=== PATIENT | male | born 1985 | race Caucasian/White ===

== ENCOUNTER 2024-10-04 06:18 | Emergency (ER) | payer OTHER, SELFPAY ==
[2024-10-04 06:23] VITALS: BP 121/75
--- NOTE | 2024-10-04 06:50 | ED.GENMED ---
History of Present Illness
General
Chief Complaint: Heart Rate Problem
Time Seen by Provider: 10/04/24 06:31
History of Present Illness
History of Present Illness:
39-year-old male with history of paroxysmal atrial fibrillation presents the emergency department for ration of tactile fever and chills as well as low back pain, diffuse muscle aches, and general malaise beginning yesterday. He reports that last
night he felt heart palpitations causing concern for recurrent A-fib, took initial dose of metoprolol and feels improved. States this feels the same as when he was diagnosed with Lyme disease in 2017 however notes have Lyme serology tested. He
treated with a 21-day course of doxycycline and was improved. Has never had confirmation of Lyme disease since that time. Denies any known tick bites or recent rashes. No URI symptoms or chest pain.
Review of Systems
Review of Systems
Allergies reviewed?: Yes
All Other Systems: ROS reviewed and negative except as documented in HPI and ROS
Phy Exam
Physical Exam
Physical Exam:
GEN: Well appearing, NAD, WDWN
HEENT: Oral mucosa moist, no scleral icterus
Cardiac: Tachycardic, regular, no murmur
Lung: No respiratory distress, no tachypnea, lungs clear to auscultation bilaterally
MSK: No gross deformity or injuries. No midline lumbar spine tenderness to palpation or to percussion
Skin: Good color, no pallor or jaundice, no rashes
Neuro: AO x3, moves all extremities freely
Psych: Calm, cooperative
Sepsis
Sepsis Screening
Sepsis Assessment: Sepsis Ruled Out
Sepsis Screen
Sepsis Screen: Sepsis Ruled Out
Date: 10/04/24
Time: 09:41
Course
Orders/Labs/Results
Orders:
Orders
10/04/24 06:19
Electrocardiogram (*1) Urgent
Reason for Study: Palpitations
10/04/24 06:20
EKG- Treatment ONCE
10/04/24 06:43
0.9% Sodium Chloride 1000 ml [Nss] 1,000 ml IV BOLUS
Ketorolac [Toradol] 15 mg IV NOW STA
10/04/24 06:58
COVID-19 Antigen Urgent
Source: Nasal Swab
CPK [Creatine Phosphokinase] Urgent
Complete Blood Count/With Diff Urgent
Comprehensive Metabolic Panel Urgent
Lyme Progressive Urgent
Urinalysis Reflex To Culture Urgent
Date Specimen was Collected: 10/04/24
Time Specimen was Collected: 06:47
Urine Microscopic Reflex Cult Urgent
Abnormal Lab Results
10/04/24
06:58
WBC 4.6 L 10^3/uL
(4.8-10.8)
Plt Count 118 L 10^3/uL
(130-400)
MPV 10.7 H fL
(7.4-10.4)
Absolute Lymphs (auto) 0.2 L 10^3/uL
(1.2-3.4)
Neutrophils % 83.0 H %
(42.2-75.2)
Lymphocytes % 3.3 L %
(20.5-51.1)
Monocytes % 12.9 H %
(1.7-9.3)
Chloride 109 H mmol/L
(98-107)
Carbon Dioxide 21 L mmol/L
(22-30)
Glucose 110 H mg/dl
(70-99)
Ur Occult Blood Reflex 2+ A
(Negative)
Urine RBC 3-6 A /HPF
(0-2)
Urine Albumin (Reflex) 1+ A
(Neg - Trace)
10/04/24 06:58
10/04/24 06:58
Vital Signs
Initial and Last Documented VS:
Initial Vital Signs
Temp Pulse Resp BP Pulse Ox
98.9 F 112 24 121/75 97
10/04/24 06:23 10/04/24 06:23 10/04/24 06:23 10/04/24 06:23 10/04/24 06:23
Last Documented Vital Signs
Temp Pulse Resp BP Pulse Ox
98.2 F 102 24 128/67 95
10/04/24 08:46 10/04/24 08:46 10/04/24 06:23 10/04/24 08:46 10/04/24 08:46
MDM/Problems Addressed
MDM/Problems Addressed:
39-year-old male presents with flulike symptoms, his lab evaluation is unrevealing with exception of mild leukopenia which supports the suspicion of a viral syndrome. He is quite concerned about the possibility of Lyme disease which is not
unreasonable, uncertain if a positive Lyme titer will provide validity as he suspects he has had Lyme in the past without known positive serology. Will treat empirically, if Lyme is negative would definitively stop doxycycline under the assumption
of a viral illness.
*Critical Care Note
Total Time (30-74mins, 75-104mins- exclusive of procedures): Not Applicable
ED Attending Note
-
Portions of this chart may have been created with voice recognition software.� Occasional wrong word or��sound alike� substitutions may have occurred due to the inherent limitations of voice recognition software.
Discharge Plan
Departure
Patient Disposition: Home (Routine Discharge)
Date of Disposition: 10/04/24
Time of Disposition: 08:23
Patient with high blood pressure during this ER visit?: No
Discharge Problem:
Acute viral syndrome, Possible Lyme Disease
Instructions: Flu
Prescriptions:
New
doxycycline monohydrate 100 mg capsule
100 mg PO BID 14 Days Qty: 28 0RF
Referrals:
Brandt Lugo PA-C [Family Provider, Family Practice]
Activity Restrictions/Additional Instructions:
Your symptoms most likely represent syndrome however Lyme test will result in 3 days. You may begin the doxycycline anticipation of this result however you will be advised to stop if the test is definitively negative
Interventions
Interventions:
*Risk Screen - Suicide Last Done: 10/04/24 06:27
*Neglect/Abuse Screening Last Done: 10/04/24 06:27
*ED- Fall Risk Assessment Last Done: 10/04/24 06:29
*ED COVID-19 Vaccine History Last Done: 10/04/24 06:27
Discharge Date and Time
Print Language: CHINESE
[2024-10-04] MEDS: TORADOL 15 MG IV (07:09)
[2024-10-04] MEDS: NSS 1000 IV (07:09)
[2024-10-04 07:21] LABS: % Basophils 0.4 % (0-2); % Immature Granulocytes 0.4 % (0-0.5); % Lymphocytes 3.3 % (20.5-51.1); % Monocytes 12.9 % (1.7-9.3); Absolute Lymphocytes 0.2 10^3/uL (1.2-3.4); Absolute Monocytes 0.6 10^3/uL (0.1-0.6); Absolute Neutrophils 3.8 10^3/uL (1.4-6.5); Hematocrit 42.3 % (39.0-52.0); Hemoglobin 14.4 g/dL (13.0-18.0); Mean Corpuscular Volume 82.1 fL (80.0-94.0); Mean Platelet Volume 10.7 fL (7.4-10.4); Nucleated Red Blood Cells % 0 % (-); Platelet Count 118 10^3/uL (130-400); Red Blood Cell Count 5.15 10^6/uL (4.70-6.10); Red Cell Dist. Width 12.3 % (11.5-14.5); Urine Albumin 1+ (Neg - Trace); Urine Bilirubin Negative (Negative); Urine Character Clear (Clear); Urine Color Yellow; Urine Glucose Negative (Negative); Urine Ketone Negative (Negative); Urine Leukocyte Negative (Negative); Urine Nitrite Negative (Negative); Urine Occult Blood 2+ (Negative); Urine Urobilinogen Negative (Neg - 1+); White Blood Cell Count 4.6 10^3/uL (4.8-10.8)
[2024-10-04 07:33] LABS: ALT (SGPT) 45 U/L (0-50); AST (SGOT) 31 U/L (17-59); Albumin 4.3 g/dl (3.5-5.0); Alkaline Phosphatase 56 U/L (38-126); Blood Urea Nitrogen 18 mg/dl (9-20); Calcium 8.9 mg/dl (8.4-10.2); Carbon Dioxide 21 mmol/L (22-30); Chloride 109 mmol/L (98-107); Creatine Phosphokinase 150 U/L (55-170); Glucose 110 mg/dl (70-99); Sodium 138 mmol/L (135-145); Total Bilirubin 1.2 mg/dl (0.2-1.3); Total Protein 6.7 g/dl (6.3-8.2); eGFR > 60.00
[2024-10-04 07:38] LABS: COVID-19 Antigen Negative (Negative)
[2024-10-04 08:07] LABS: Urine Squamous Cell 0-2 /LPF (Few); Urine White Cell 0-2 /HPF (0-5)
[2024-10-04 08:46] VITALS: BP 128/67
[2024-10-05 16:08] LABS: Lyme Antibody Screen, EIA Negative (Negative)
== END 2024-10-04 09:00 | disposition home or self-care (01) ==
LOC: EMR 06:18
PROVIDERS: Physician Assistant; EMERGENCY PHYSICIAN Emergency Medicine; FAMILY PHYSICIAN Physician Assistant Medical
DX: B34.9 Viral infection, unspecified (principal); I48.0 Paroxysmal atrial fibrillation
CPT/HCPCS: 96374; 96361; 99284; 80053; 81003; 81015; 82550; 85025; 86618; 87811; 93005